=== PATIENT | female | born 1950 | race Caucasian/White ===

== ENCOUNTER 2017-01-24 03:32 | Emergency (ER) | payer MEDICARE, BC ==
[2017-01-24] MEDS ORDERED: Aspirin 81 MG Tab.Chew PO ONE (03:56)
[2017-01-24] MEDS ORDERED: Morphine 2 MG/ML Syringe IVPUSH PRN (03:56)
[2017-01-24] MEDS ORDERED: Sodium Chloride 0.9% 10 ML Syringe FLUSH PRN (03:56)
[2017-01-24] MEDS ORDERED: Aspirin 81 MG Tab.Chew ONE (03:58)
[2017-01-24] MEDS: Nitroglycerin 0.4 MG Tab.SL SL PRN ×3 (04:00→04:22)
[2017-01-24] MEDS ORDERED: Morphine 2 MG/ML Syringe ONE (04:00)
[2017-01-24] MEDS ORDERED: Clopidogrel 75 MG Tab PO ONE (04:01)
[2017-01-24] MEDS ORDERED: Heparin Sodium 5,000 Units/ML Vial IVPUSH ONE (04:01)
[2017-01-24] MEDS ORDERED: Metoprolol Tartrate 25 MG Tab PO ONE (04:01)
[2017-01-24] MEDS ORDERED: Ondansetron 4 MG/2 ML SDV IVPUSH ONE (04:03)
[2017-01-24] MEDS ORDERED: Heparin Sodium/D5W 500 ML ONE (04:18)
[2017-01-24 04:22] VITALS: BP 117/52
--- NOTE | 2017-01-24 04:23 | EDM.PDOC ---
ED HPI GENERAL MEDICAL PROBLEM - General Chief Complaint: General Stated Complaint: ABD PAIN Time Seen by Provider: 01/24/17 03:56 Source of Information: Reports: Patient, Family, RN Notes Reviewed History Limitations: Reports: No Limitations - History of Present Illness INITIAL COMMENTS - FREE TEXT/NARRATIVE: 66-year-old female presents emergency department day complaint of epigastric pain she describes nausea and shortness of breath with this it started at 9 PM last night progressively got worse tonight to the point where she could not sleep and reported to the emergency department for evaluation, she has no cardiac history denies any tobacco use epigastric Pain Score (Numeric/FACES): 8 - Related Data Allergies Allergy/AdvReac Type Severity Reaction Status Date / Time codeine Allergy Itching Uncoded 01/24/17 04:01 Home Meds: Home Meds ALPRAZolam [Xanax] 1 tab PO BID PRN 01/24/17 [History] Pantoprazole [ProTONIX] 40 mg PO DAILY 01/24/17 [History] Past Medical History Gastrointestinal History: Reports: GERD - Past Surgical History Female Surgical History: Reports: Tubal Ligation Social & Family History - Tobacco Use Smoking Status *Q: Never Smoker - Alcohol Use Days Per Week of Alcohol Use: 2 Number of Drinks Per Day: 2 Total Drinks Per Week: 4 - Recreational Drug Use Recreational Drug Use: No ED ROS GENERAL - Review of Systems Review Of Systems: See Below Constitutional: Reports: No Symptoms HEENT: Reports: No Symptoms Respiratory: Reports: Shortness of Breath Cardiovascular: Reports: Chest Pain GI/Abdominal: Reports: Nausea : Reports: No Symptoms Musculoskeletal: Reports: No Symptoms Skin: Reports: No Symptoms Neurological: Reports: No Symptoms ED EXAM, GENERAL - Physical Exam Exam: See Below Exam Limited By: No Limitations General Appearance: Alert, Mild Distress Eye Exam: Bilateral Eye: Normal Inspection Head: Atraumatic, Normocephalic Neck: Normal Inspection, Supple, Non-Tender, Full Range of Motion Respiratory/Chest: No Respiratory Distress, Lungs Clear, Normal Breath Sounds, No Accessory Muscle Use Cardiovascular: Regular Rate, Rhythm, No Murmur GI/Abdominal: Soft, Non-Tender Extremities: Normal Inspection, No Pedal Edema Course - Orders/Labs/Meds Orders: Active Orders 24 hr Category Date Time Status Cardiac Monitoring [RC] .As Directed Care 01/24/17 03:56 Active EKG Documentation Completion [RC] ASDIRECTED Care 01/24/17 03:57 Active Peripheral IV Care [RC] . DIRECTED Care 01/24/17 03:57 Active Chest 1V Frontal [CR] Urgent Exams 01/24/17 04:02 Ordered CKMB [CHEM] Stat Lab 01/24/17 04:02 Received COMPREHENSIVE METABOLIC PN,CMP [CHEM] Stat Lab 01/24/17 04:02 Received INR,PT,PROTHROMBIN TIME [COAG] Stat Lab 01/24/17 04:02 Received PTT,PARTIAL THROMBOPLSTIN TIME [COAG] Stat Lab 01/24/17 04:02 Received TROPONIN I [CHEM] Stat Lab 01/24/17 04:02 Received Heparin Sodium/D5W [Heparin 25,000 Units in D5W 500 ML] Med 01/24/17 04:30 Ordered 25,000 units in 500 ml IV TITRATE Morphine Med 01/24/17 03:56 Active 2 mg IVPUSH Q10M PRN Nitroglycerin [Nitrostat] Med 01/24/17 03:56 Active 0.4 mg SL Q5M PRN Sodium Chloride 0.9% [Saline Flush] Med 01/24/17 03:56 Active 10 ml FLUSH ASDIRECTED PRN Peripheral IV Insertion Adult [OM.PC] Stat Oth 01/24/17 03:56 Ordered Saline Lock Insert [OM.PC] Stat Oth 01/24/17 03:56 Ordered EKG 12 Lead [EK] Stat Ther 01/24/17 03:57 Ordered Medication Orders Heparin Sodium/Dextrose (Heparin 25,000 Units In D5w 500 Ml) 25,000 units in 500 mls @ 0 mls/hr IV TITRATE LYLE; 12 UNITS/KG/HR PRN Reason: Protocol Morphine Sulfate (Morphine) 2 mg IVPUSH Q10M PRN PRN Reason: Chest Pain Stop: 01/25/17 03:56 Nitroglycerin (Nitrostat) 0.4 mg SL Q5M PRN PRN Reason: Chest Pain Stop: 01/25/17 03:56 Sodium Chloride (Saline Flush) 10 ml FLUSH ASDIRECTED PRN PRN Reason: Keep Vein Open Labs: Laboratory Tests 01/24/17 Range/Units 03:56 WBC 8.7 (4.5-11.0) K/uL RBC 4.89 (3.30-5.50) M/uL Hgb 15.0 (12.0-15.0) g/dL Hct 45.6 (36.0-48.0) % MCV 93 (80-98) fL MCH 31 (27-31) pg MCHC 33 (32-36) % Plt Count 295 (150-400) K/uL Neut % (Auto) 62 (36-66) % Lymph % (Auto) 24 (24-44) % [place] % (Auto) 8 H (2-6) % Eos % (Auto) 5 H (2-4) % Baso % (Auto) 1 (0-1) % Meds: Medications Generic Name Dose Route Start Last Admin Trade Name Freq PRN Reason Stop Dose Admin Heparin Sodium/Dextrose 25,000 units in 500 mls @ 0 mls/hr 01/24/17 04:30 Heparin 25,000 Units In D5w 500 Ml IV TITRATE LYLE Protocol 12 UNITS/KG/HR Morphine Sulfate 2 mg 01/24/17 03:56 Morphine IVPUSH 01/25/17 03:56 Q10M PRN Chest Pain Nitroglycerin 0.4 mg 01/24/17 03:56 Nitrostat SL 01/25/17 03:56 Q5M PRN Chest Pain Sodium Chloride 10 ml 01/24/17 03:56 Saline Flush FLUSH ASDIRECTED PRN Keep Vein Open Discontinued Medications Generic Name Dose Route Start Last Admin Trade Name Teresa PRN Reason Stop Dose Admin Aspirin 324 mg 01/24/17 03:56 Aspirin PO 01/24/17 03:57 ONETIME ONE Aspirin Confirm 01/24/17 03:58 Aspirin Administered 01/24/17 03:59 Dose 324 mg .ROUTE .STK-MED ONE Clopidogrel Bisulfate 600 mg 01/24/17 04:01 Plavix PO 01/24/17 04:02 ONETIME ONE Heparin Sodium (Porcine) 4,000 units 01/24/17 04:01 Heparin Sodium IVPUSH 01/24/17 04:02 ONETIME ONE Metoprolol Tartrate 25 mg 01/24/17 04:01 Lopressor PO 01/24/17 04:02 ONETIME ONE Morphine Sulfate Confirm 01/24/17 04:00 Morphine Administered 01/24/17 04:01 Dose 2 mg .ROUTE .STK-MED ONE Ondansetron HCl 4 mg 01/24/17 04:03 Zofran IVPUSH 01/24/17 04:04 ONETIME ONE Departure - Departure Time of Disposition: 04:22 Disposition: DC/Tfer to Acute Hospital 02 Condition: Good Clinical Impression: ST elevation myocardial infarction (STEMI) Qualifiers: Involved coronary artery: other inferior wall coronary artery Qualified Code(s) : I21.19 - ST elevation (STEMI) myocardial infarction involving other coronary artery of inferior wall - Discharge Information Referrals: PCP,None [Primary Care Provider] - - My Orders Last 24 Hours: My Active Orders 01/24/17 03:56 Cardiac Monitoring [RC] .As Directed Morphine 2 mg IVPUSH Q10M PRN Nitroglycerin [Nitrostat] 0.4 mg SL Q5M PRN Sodium Chloride 0.9% [Saline Flush] 10 ml FLUSH ASDIRECTED PRN Peripheral IV Insertion Adult [OM.PC] Stat Saline Lock Insert [OM.PC] Stat 01/24/17 03:57 EKG Documentation Completion [RC] ASDIRECTED Peripheral IV Care [RC] . DIRECTED EKG 12 Lead [EK] Stat 01/24/17 04:02 Chest 1V Frontal [CR] Urgent CKMB [CHEM] Stat COMPREHENSIVE METABOLIC PN,CMP [CHEM] Stat INR,PT,PROTHROMBIN TIME [COAG] Stat PTT,PARTIAL THROMBOPLSTIN TIME [COAG] Stat TROPONIN I [CHEM] Stat 01/24/17 04:30 Heparin Sodium/D5W [Heparin 25,000 Units in D5W 500 ML] 25,000 units in 500 ml IV TITRATE - Assessment/Plan Last 24 Hours: My Active Orders 01/24/17 03:56 Cardiac Monitoring [RC] .As Directed Morphine 2 mg IVPUSH Q10M PRN Nitroglycerin [Nitrostat] 0.4 mg SL Q5M PRN Sodium Chloride 0.9% [Saline Flush] 10 ml FLUSH ASDIRECTED PRN Peripheral IV Insertion Adult [OM.PC] Stat Saline Lock Insert [OM.PC] Stat 01/24/17 03:57 EKG Documentation Completion [RC] ASDIRECTED Peripheral IV Care [RC] . DIRECTED EKG 12 Lead [EK] Stat 01/24/17 04:02 Chest 1V Frontal [CR] Urgent CKMB [CHEM] Stat COMPREHENSIVE METABOLIC PN,CMP [CHEM] Stat INR,PT,PROTHROMBIN TIME [COAG] Stat PTT,PARTIAL THROMBOPLSTIN TIME [COAG] Stat TROPONIN I [CHEM] Stat 01/24/17 04:30 Heparin Sodium/D5W [Heparin 25,000 Units in D5W 500 ML] 25,000 units in 500 ml IV TITRATE Plan: Assessment Acuity = acute Site and laterality = ST elevation myocardial infarction Etiology = probable coronary artery disease Manifestations = chest pain, nausea, shortness of breath Location of injury = Home Lab values = EKG demonstrates ST elevation 3 aVF with depressions in 1 Den[place] lab work is pending Plan Called discussed case with Dr. Yeung kindly accepted the patient in transport will be transported via EMS ground for time, was given 600 of Plavix, for aspirin, 25 metoprolol, 4000 unit bolus of heparin, heparin drip will be started in route she was given 3 nitros and morphine of 2 mg This note was dictated using [employer] voice recognition software please call with any questions.
[2017-01-24] MEDS ORDERED: Heparin Sodium/D5W 25,000 UNITS/500 ML BAG IV SCH (04:30)
--- NOTE | 2017-01-24 11:01 | CR ---
Chest 1V Frontal INDICATION: chest pain COMPARISON: None FINDINGS: Single view of the chest obtained shows normal heart size. No infiltrate or pleural effus ion. No signs of pulmonary edema. IMPRESSION: Negative single view of the chest.
== END 2017-01-24 04:30 ==
LOC: JP.ED 03:32
DX: I21.19 ST elevation (STEMI) myocardial infarction involving other coronary artery of inferior wall (principal); K21.9 Gastro-esophageal reflux disease without esophagitis; Z88.5 Allergy status to narcotic agent; Z98.51 Tubal ligation status; Z79.899 Other long term (current) drug therapy
CPT/HCPCS: 36415; 71010; 80053; 82553; 84484; 85025; 85610; 85730; 93005; 96374; 96375; 99285; A9270; J1644; J2270; J2405; 93010